=== PATIENT | male | born 1985 | race Hispanic/Latino ===

== ENCOUNTER 2017-05-15 20:42 | Emergency (ER) | payer MEDICAID ==
[2017-05-15 20:42] VITALS: BMI 23.4
[2017-05-15 20:56] VITALS: BP 154/84; PULSE 92; RESP 16; TEMP 98.1; O2SAT 96
--- NOTE | 2017-05-15 21:29 | ED PDOC ---
HPI: Psych/Substance Abuse Time Seen by Provider: 05/15/17 20:47 Chief Complaint (Nursing): Psychiatric Evaluation Chief Complaint (Provider): Psychiatric Evaluation History Per: Patient History/Exam Limitations: no limitations Onset/Duration Of Symptoms: Days Current Symptoms Are (Timing): Still Present Additional Complaint(s): Renan is a 31 y/o male brought to the ED for psychiatric evaluation. Patient reports hearing voices telling him to jump off a bridge. Ran out of psych meds 3 days ago but states he hears voices even while on meds. Psychiatric history of schizophrenia. No other medical history. PMD: Unknown Past Medical History Reviewed: Historical Data, Nursing Documentation, Vital Signs Vital Signs: Last Vital Signs Temp 98.1 F 05/15/17 20:53 Pulse 92 H 05/15/17 20:53 Resp 16 05/15/17 20:53 BP 154/84 H 05/15/17 20:53 Pulse Ox 96 05/15/17 20:53 - Medical History PMH: Anxiety, Back Problems, Bipolar Disorder, Depression, Paranoia, Schizophrenia Denies: Diabetes, Hepatitis, HIV, HTN, Chronic Kidney Disease, Seizures, Sexually Transmitted Disease - Surgical History Surgical History: - Family History Family History: States: Unknown Family Hx - Immunization History Hx Tetanus Toxoid Vaccination: No Hx Influenza Vaccination: No Hx Pneumococcal Vaccination: No - Home Medications Home Medications: Ambulatory Orders Medication Instructions Recorded Divalproex [Depakote DR(*BID*)] 500 mg PO DAILY #30 tcp 03/03/17 Haloperidol [Haldol] 5 mg PO BID #60 tab 03/03/17 Paliperidone [Invega Sustenna] 117 mg IM ONCE #1 syr 03/14/17 Benztropine [Cogentin] 1 mg PO BID #60 tab 03/18/17 Divalproex [Depakote DR] 500 mg PO TID #90 tcp 03/18/17 Haloperidol [Haldol] 5 mg PO DAILY #30 tab 03/18/17 Propranolol [Inderal] 20 mg PO TID #90 tab 03/18/17 traZODone [Desyrel] 100 mg PO HS #30 tab 03/18/17 - Allergies Allergies/Adverse Reactions: Allergies Allergy/AdvReac Type Severity Reaction Status Date / Time No Known Allergies Allergy Verified 05/15/17 20:53 Review of Systems ROS Statement: Except As Marked, All Systems Reviewed And Found Negative Psych: Positive for: Other (Hearing voices). Negative for: Suicidal ideation Physical Exam - Reviewed Nursing Documentation Reviewed: Yes Vital Signs Reviewed: Yes - Physical Exam Appears: Positive for: Non-toxic, No Acute Distress Head Exam: Positive for: ATRAUMATIC, NORMAL INSPECTION, NORMOCEPHALIC Skin: Positive for: Normal Color, Warm, Dry Eye Exam: Positive for: EOMI, Normal appearance, PERRL Neck: Positive for: Normal, Painless ROM, Supple Cardiovascular/Chest: Positive for: Regular Rate, Rhythm. Negative for: Murmur Respiratory: Positive for: Normal Breath Sounds. Negative for: Accessory Muscle Use, Respiratory Distress Gastrointestinal/Abdominal: Positive for: Normal Exam, Soft. Negative for: Tenderness Back: Positive for: Normal Inspection. Negative for: Vertebral Tenderness Extremity: Positive for: Normal ROM. Negative for: Pedal Edema, Deformity Neurologic/Psych: Positive for: Alert, Oriented. Negative for: Motor/Sensory Deficits - ECG O2 Sat by Pulse Oximetry: 96 (RA) Pulse Ox Interpretation: Normal - Progress Re-evaluation Time: 22:49 Condition: Re-examined (Evaluated by grain i farmworker who discussed with Dr. Carrillo. Both feel that pt is malingering and not suicidal and can be dc'ed) Medical Decision Making Medical Decision Making: Time: 21:30 Impression: Schizophrenia Initial Plan: --Pending psychiatric evaluation Scribe Attestation: Documented by Joycelyn Steen, acting as a scribe for Fer Lord MD Provider Scribe Attestation: All medical record entries made by the Scribe were at my direction and personally dictated by me. I have reviewed the chart and agree that the record accurately reflects my personal performance of the history, physical exam, medical decision making, and the department course for this patient. I have also personally directed, reviewed, and agree with the discharge instructions and disposition. Disposition - Clinical Impression Clinical Impression: Depression - Patient ED Disposition Is Patient to be Admitted: No Counseled Patient/Family Regarding: Diagnosis, Need For Followup - Disposition Referrals: [facility] [Outside] Disposition: Routine/Home Disposition Time: 22:50 Condition: FAIR Additional Instructions: FOLLOW UP ATE [facility] [address] [place] [address] Instructions: Depression (ED) Forms: [employer] (Cameroonian)
== END 2017-05-15 23:01 | disposition home or self-care (01) ==
LOC: H.ER 20:42
DX: F33.8 Other recurrent depressive disorders (principal); F20.9 Schizophrenia, unspecified; F31.9 Bipolar disorder, unspecified; F41.9 Anxiety disorder, unspecified

== ENCOUNTER 2017-05-18 05:26 | Inpatient (IN) | payer MEDICAID ==
[2017-05-18 05:32] VITALS: BMI 26.6
[2017-05-18 05:33] VITALS: O2SAT 96
--- NOTE | 2017-05-18 05:36 | ED PDOC ---
Psych Transfer Clearance - Clearance Statement Clearance Statement: Reviewed vital signs, lab results and transfer papers. Patient clinically stable for psychiatric admission.
[2017-05-18] MEDS ORDERED: DiphenhydrAMINE 50 mg/ml Inj IM PRN (05:57)
[2017-05-18] MEDS ORDERED: Alum-Mag Hydrox-Simethicone Susp (30 mL) PO PRN (05:57)
[2017-05-18] MEDS ORDERED: Magnesium Hydroxide Susp 30 ml UD PO PRN (05:57)
[2017-05-18 10:43] LABS: CHOLESTEROL 158 mg/dL (0-199)
[2017-05-18 11:58] VITALS: RESP 18
--- NOTE | 2017-05-18 12:06 | PCM.BM ---
Treatment Plan Problems - Problems identified on initial assessmt Problem 1 Date Initiated: 05/18/17 Time Initiated: 12:22 Assessment reference: NA Status: Active Priority: 1 Problem 2 Date Initiated: 05/18/17 Time Initiated: 12:23 Assessment reference: NA medication nonadherence Date Initiated: 05/18/17 Time Initiated: 13:37 Assessment reference: NA Status: Active Priority: 1 alterrred Sensory Perrceptual Auditory Date Initiated: 05/18/17 Time Initiated: 13:38 Assessment reference: NA Status: Active Priority: 2 Treatment assets and liabiliti Patient Assests: cooperative, resourceful, self-reliant, ADL independent Patient Liabilities: financial problems, poor support system, relationship conflicts, auditory impairment
--- NOTE | 2017-05-18 13:36 | PCM.BM ---
<Sona Munroe - Last Filed: 05/18/17 14:49> Treatment Plan Problems - Problems identified on initial assessmt Problem 1 Date Initiated: 05/18/17 Time Initiated: 12:22 Assessment reference: NA Status: Active Priority: 1 Problem 2 Date Initiated: 05/18/17 Time Initiated: 12:23 Assessment reference: NA medication nonadherence Date Initiated: 05/18/17 Time Initiated: 13:37 Assessment reference: NA Status: Active Priority: 1 alterrred Sensory Perrceptual Auditory Date Initiated: 05/18/17 Time Initiated: 13:38 Assessment reference: NA Status: Active Priority: 2 Treatment assets and liabiliti Patient Assests: cooperative, resourceful, self-reliant, ADL independent Patient Liabilities: financial problems, poor support system, relationship conflicts, auditory impairment - Milieu Protocol Maintain good personal hygiene: daily Encourage regular showers, daily Remind patient to perform daily oral care, daily Assist patient to perform ADL's Conduct patient checks and document Observation sheet: Q15 minutes Maintain personal safety: every shift Educate patient to report safety concerns to staff, every shift Monitor environment for contraband/sharps Medication safety: Monitor for expected outcome, potential side effects: every shift, Assess barriers to learning: every shift, Assess readiness for medication education: every shift <Marisela Baer - Last Filed: 05/19/17 10:24> Treatment assets and liabiliti Patient Assests: adapts well, cooperative, resourceful, self-reliant, ADL independent, physically healthy, negotiates basic needs Patient Liabilities: financial problems, poor support system, relationship conflicts Family Contact Family involvement: Famliy/SO not involved Family contact: Patient declines to allow family contact at present - Outside Agency Agency 1 Care involvment: Other (Patient agreeable to [facility] referral upon discharge. ) - Goals for Treatment Patient goals for treatment: Patient to continue stabilization on 3NP through medication management and group/supportive therapy. Patient to be encouraged to attend groups to develop coping skills, improve insight, manage AH and promote compliance. Psychoeducation regarding risks of noncompliance with appropriate aftercare provided. Discharge/Continuing Care - Education Needs Education Needs: Patient Medication, Patient Diagnosis/Disease Process, Patient Coping Skills, Patient Anger Management skills, Patient Community resources, Patient Aftercare Safety Plan - Discharge Discharge Criteria: Tolerates medication w/o severe side effects, Free of Suicidal thoughts, Free of paranoid thoughts, Free of agitation, Reduction of target symptoms Discharge to:: Longterm
--- NOTE | 2017-05-18 13:39 | PCM.BM ---
Treatment Plan Problems - Problems identified on initial assessmt Problem 1 Date Initiated: 05/18/17 Time Initiated: 12:22 Assessment reference: NA Status: Active Priority: 1 Problem 2 Date Initiated: 05/18/17 Time Initiated: 12:23 Assessment reference: NA medication nonadherence Date Initiated: 05/18/17 Time Initiated: 13:37 Assessment reference: NA Status: Active Priority: 1 alterrred Sensory Perrceptual Auditory Date Initiated: 05/18/17 Time Initiated: 13:38 Assessment reference: NA Status: Active Priority: 2 Treatment assets and liabiliti Patient Assests: cooperative, resourceful, self-reliant, ADL independent Patient Liabilities: financial problems, poor support system, relationship conflicts, auditory impairment - Milieu Protocol Maintain good personal hygiene: daily Encourage regular showers, daily Remind patient to perform daily oral care, daily Assist patient to perform ADL's Maintain personal safety: every shift Educate patient to report safety concerns to staff, every shift Monitor environment for contraband/sharps Medication safety: Monitor for expected outcome, potential side effects: every shift, Assess barriers to learning: every shift, Assess readiness for medication education: every shift
--- NOTE | 2017-05-18 16:13 | CP.PCM.CON ---
History of Present Illness - History of Present Illness History of Present Illness: 31 yo male with no siginficant PMH admitted to psyche unit because of suicidal ideation. Review of Systems - Review of Systems All systems: reviewed and no additional remarkable complaints except (aside from those mentioned ABOVE, 12 POINT SYSTEM REVIEW WERE NEGATIVE BY ME) Past Patient History - Infectious Disease Hx of Infectious Diseases: None - Tetanus Immunizations Tetanus Immunization: Unknown - Past Medical History & Family History Past Medical History?: No - Past Social History Smoking Status: Heavy Smoker > 10 Cigarettes Daily Alcohol: None Drugs: Denies Home Situation {Lives}: Homeless - CARDIAC Hx Cardiac Disorders: No - PULMONARY Hx Respiratory Disorders: No - NEUROLOGICAL Hx Neurological Disorder: No - HEENT Hx HEENT Problems: No Hx Cataracts: No Hx Deafness: No Hx Difficulty Chewing: No Hx Epistaxis: No Hx Glaucoma: No Hx Macular Degeneration: No - RENAL Hx Chronic Kidney Disease: No - ENDOCRINE/METABOLIC Hx Endocrine Disorders: No - HEMATOLOGICAL/ONCOLOGICAL Hx Blood Disorders: No - INTEGUMENTARY Hx Dermatological Problems: No Hx Basil Cell: No Hx Eczema: No Hx Melanoma: No Hx Psoriasis: No Hx Squamous Cell: No - MUSCULOSKELETAL/RHEUMATOLOGICAL Hx Musculoskeletal Disorders: No - GASTROINTESTINAL Hx Gastrointestinal Disorders: No - GENITOURINARY/GYNECOLOGICAL Hx Genitourinary Disorders: No Hx Sexually Transmitted Disorders: No - PSYCHIATRIC Hx Depression: Yes Hx Substance Use: Yes (THC) - SURGICAL HISTORY Hx Surgeries: No - ANESTHESIA Hx Anesthesia: No Meds Allergies/Adverse Reactions: Allergies Allergy/AdvReac Type Severity Reaction Status Date / Time No Known Allergies Allergy Verified 05/15/17 20:53 - Medications Medications: Current Medications Acetaminophen (Tylenol 325mg Tab) 650 mg PO Q4 PRN PRN Reason: Pain, moderate (4-7) Al Hydrox/Mg Hydrox/Simethicone (Maalox Plus 30 Ml) 30 ml PO Q4 PRN PRN Reason: Dyspepsia Diphenhydramine HCl (Benadryl) 50 mg IM Q6 PRN PRN Reason: Extrapyramidal S/S Unable PO Diphenhydramine HCl (Benadryl) 50 mg PO HS PRN PRN Reason: Sleep Last Admin: 05/18/17 10:34 Dose: 50 mg Haloperidol (Haldol) 5 mg PO Q4 PRN PRN Reason: Agitation Last Admin: 05/18/17 10:34 Dose: 5 mg Haloperidol Lactate (Haldol) 5 mg IM Q4 PRN PRN Reason: Agitation, Unable to Take PO Lorazepam (Ativan) 2 mg IM Q4 PRN PRN Reason: Anxiety/Agitation,Unable PO Lorazepam (Ativan) 1 mg PO Q4 PRN PRN Reason: Anxiety/Agitation Last Admin: 05/18/17 10:34 Dose: 1 mg Magnesium Hydroxide (Milk Of Magnesia) 30 ml PO HS PRN PRN Reason: Constipation Physical Exam - Constitutional Appears: No Acute Distress - Head Exam Head Exam: ATRAUMATIC - Eye Exam Eye Exam: absent: Scleral icterus - ENT Exam ENT Exam: Mucous Membranes Moist - Neck Exam Neck exam: Negative for: Meningismus - Respiratory Exam Respiratory Exam: absent: Rhonchi, Wheezes, Respiratory Distress - Cardiovascular Exam Cardiovascular Exam: REGULAR RHYTHM, +S1, +S2 - GI/Abdominal Exam GI & Abdominal Exam: Soft. absent: Tenderness - Rectal Exam Rectal Exam: Deferred - Extremities Exam Extremities exam: Negative for: pedal edema - Neurological Exam Neurological exam: Alert, Oriented x3 - Psychiatric Exam Psychiatric exam: Normal Affect - Skin Skin Exam: Dry, Intact Results - Vital Signs Recent Vital Signs: Last Vital Signs Temp 97 F L 05/18/17 09:00 Pulse 75 05/18/17 09:00 Resp 18 05/18/17 09:00 BP 126/75 05/18/17 09:00 Pulse Ox 96 05/18/17 05:30 - Labs Labs: Laboratory Results - last 24 hr 05/18/17 09:45 Triglycerides 277 H D Cholesterol 158 LDL Cholesterol Direct 106 HDL Cholesterol 31 Assessment & Plan (1) Depression Status: Acute Comment: psyche is managing
[2017-05-19 08:00] LABS: T4 8.93 ug/dl (5.5-11.0)
[2017-05-19 08:12] LABS: THYROID STIMULATING HORMONE 0.41 mIU/ML (0.46-4.68)
--- NOTE | 2017-05-19 11:16 | PCM.PSYCH ---
Initial Psychiatric Evaluation - Initial Psychiatric Evaluation Type of Admission: Voluntary Legal Status: Capacity Chief Complaint (in patient's own words): can i go tomorrow Patient's Reaction to Hospitalization: can i go tomorrow History of Present Illness and Precipitating Events: 31 yo multiple admissions for schizoaffective disorder. he is homeless. he presents frequently to ERs across the region c/o voices, suicidal thoughts. he does not follow up with treatment on any consistent basis. he generally responds well to depakote and haldol. he was seeking admission because of voices. he now wants to leave the hospital. Current Medications: Active Medications Generic Name Dose Route Start Last Admin Trade Name Freq PRN Reason Stop Dose Admin Acetaminophen 650 mg 05/18/17 05:57 Tylenol 325mg Tab PO Q4 PRN Pain, moderate (4-7) Al Hydrox/Mg Hydrox/Simethicone 30 ml 05/18/17 05:57 Maalox Plus 30 Ml PO Q4 PRN Dyspepsia Benztropine Mesylate 1 mg 05/19/17 10:15 Cogentin PO BID ANDIE Diphenhydramine HCl 50 mg 05/18/17 05:57 Benadryl IM Q6 PRN Extrapyramidal S/S Unable PO Diphenhydramine HCl 50 mg 05/18/17 06:00 05/18/17 10:34 Benadryl PO 50 mg HS PRN Administration Sleep Divalproex Sodium 500 mg 05/19/17 10:[address](*Bid*) PO BID ANDIE Haloperidol 5 mg 05/18/17 05:57 05/18/17 10:34 Haldol PO 5 mg Q4 PRN Administration Agitation Haloperidol 5 mg 05/19/17 10:15 Haldol PO BID ANDIE Haloperidol Lactate 5 mg 05/18/17 05:57 Haldol IM Q4 PRN Agitation, Unable to Take PO Lorazepam 2 mg 05/18/17 05:57 Ativan IM Q4 PRN Anxiety/Agitation,Unable PO Lorazepam 1 mg 05/18/17 05:57 05/18/17 10:34 Ativan PO 1 mg Q4 PRN Administration Anxiety/Agitation Magnesium Hydroxide 30 ml 05/18/17 05:57 Milk Of Magnesia PO HS PRN Constipation Trazodone HCl 100 mg 05/19/17 22:00 Desyrel PO HS ANDIE Past Psychiatric History - Past Psychiatric History Previous Treatment History: Inpatient Prior Professional Help: multiple admissions History of Abuse: does not discuss History of ETOH/Drug Use: history of cannabis abuse. no drug testing results available History of Family Illness: does not discuss Pertinent Medical Hx (Current Medical&Sleep Prob, Allergies): Allergies Allergy/AdvReac Type Severity Reaction Status Date / Time No Known Allergies Allergy Verified 05/15/17 20:53 RX: Divalproex [Depakote DR(*BID*)] 500 mg PO DAILY #30 tcp 03/03/17 RX: Haloperidol [Haldol] 5 mg PO BID #60 tab 03/03/17 RX: Paliperidone [Invega Sustenna] 117 mg IM ONCE #1 syr 03/14/17 RX: Benztropine [Cogentin] 1 mg PO BID #60 tab 03/18/17 RX: Divalproex [Depakote DR] 500 mg PO TID #90 tcp 03/18/17 RX: Haloperidol [Haldol] 5 mg PO DAILY #30 tab 03/18/17 RX: Propranolol [Inderal] 20 mg PO TID #90 tab 03/18/17 RX: traZODone [Desyrel] 100 mg PO HS #30 tab 03/18/17 Review of Systems - Psychiatric Psychiatric: As Per HPI Mental Status Examination - Personal Presentation Personal Presentation: Looks stated age Additional comments: obese, poor dentition - Affect Affect: Constricted - Motor Activity Motor Activity: Calm - Reliability in Providing Information Reliability in Providing Information: Poor, due to alteration in thoughts - Speech Speech: Other (focused on discharge) - Mood Mood: Depressed - Formal Thought Process Formal Thought Process: Hallucinations, Loosening of associations - Hallucinations/Delusions Hallucinations: Auditory - Obsessions/Compulsions Obsessions: No Compulsions: No - Cognitive Functions Orientation: Person, Place, Situation, Time Sensorium: Alert Attention/Concentration: Attentive Abstract Thinking: Rogers Estimate of Intelligence: Average Judgement: Intact, as evidence by: Insight regarding need for hospitalization Memory: Recent intact, as evidence by: Ability to recall events of the day, Remote intact, as evidenced by: Abilit to recall sig. life events - Risk Risk: Suicidal (denies current thoughts), Diminished functioning - Strength & Assets Inventory Strength & Assets Inventory: Life experience DSM 5 DX - DSM 5 DSM 5 Diagnosis: schizoaffective disorder, bipolar type - Recommended/Plan of Treatment Treatment Recommendations and Plan of Treatment: admit to 3np for safety and observation gather collateral information provide supportive therapy adjust medications hospitalist consult disposition planning Projected ELOS: 5-7 days Prognosis: fair - Smoking Cessation Smoking Cessation Initiated: No
[2017-05-19] MEDS: Divalproex 500 mg DR(BID formulation) PO SCH ×2 (12:14→17:22)
[2017-05-20 09:16] VITALS: BP 127/57; PULSE 75; TEMP 96.3
[2017-05-20] MEDS: Divalproex 500 mg DR(BID formulation) PO SCH (09:30)
--- NOTE | 2017-05-20 11:31 | PCM.PYCHDC ---
Mental Status Examination - Mental Status Examination Orientation: Person, Place, Situation, Time Memory: Intact Mood: Neutral Affect: Broad Speech: Appropriate Attention: WNL Concentration: WNL Association: WNL Fund of Knowledge: WNL Formal Thought Process: No Impairment Description of patient's judgement and insight: Fair I/J Psychotic Thoughts and Behaviors: No AH/VH/paranoia/delusions Suicidal Ideation: No Current Homicidal Ideation?: No Discharge Summary - Discharge Note Reason for Hospitalization: As per initial note, HPI: 31 yo multiple admissions for schizoaffective disorder. he is homeless. he presents frequently to ERs across the region c/o voices, suicidal thoughts. he does not follow up with treatment on any consistent basis. he generally responds well to depakote and haldol. he was seeking admission because of voices. he now wants to leave the hospital. Laboratory Data: Abnormal Lab Results 05/19/17 05/19/17 07:15 07:15 Hemoglobin A1c 5.5 RPR Nonreactive Consultations:: List each consultation separately and include: 1. Reason for request. 2. Findings. 3. Follow-up Consultations: Medicine consult Summary of Hospital Course include:: 1. Description of specific treatment plan utilized for patients during their course of treatmen. 2. Summarize the time- course for resolution of acute symptoms and/or regressed behaviors. 3. Describe issues identified and worked on during hospitalization. 4. Describe medication utilized. 5. Describe medical problems identified and treated. 6. Reassessment of suicide risk Summary of Hospital Course: Patient admitted to the psychiatry unit. Individual and group therapy provided. Patient was restarted on medications: Cogentin 1 mg PO BID, Depakote 500 mg PO BID, Haldol 5 mg PO BID, Trazodone 100 mg PO HS. Patient is requesting to be discharge and as he is not an acute danger to self or others, he will be discharged w/ outpatient follow-up. - Final Diagnosis (DSM 5) Condition upon Discharge: STABLE DSM 5: Schizoaffective Disorder Disposition: HOME/ ROUTINE Follow-up Treatment Plan: -Discharge w/ outpatient follow-up Prescriptions/Medication Reconciliation: Benztropine [Cogentin] 1 mg PO BID #60 tab Divalproex [Depakote DR(*BID*)] 500 mg PO BID #60 tcp Haloperidol [Haldol] 5 mg PO BID #60 tab traZODone [Desyrel] 100 mg PO HS #30 tab - Smoking Cessation Smoking Cessation Medication prescribed: No Reason for not providing: Not indicated - Antipsychotic Medications Pt discharged on 2 or more routine antipsychotic medications: No
== END 2017-05-20 11:16 | disposition home or self-care (01) | DRG 430 ==
LOC: H.ER 05:26 → H.ERHOLD 05:33 → H.PSYCH 05:50
PROVIDERS: ADMIT Psychiatry & Neurology Psychiatry; ATTEND Psychiatry & Neurology Psychiatry
PROC: GZHZZZZ Group Psychotherapy (ICD-10-PCS; principal; 2017-05-18)
PROC: GZ56ZZZ Individual Psychotherapy, Supportive (ICD-10-PCS; 2017-05-18)
DX: F25.9 Schizoaffective disorder, unspecified (principal); Z59.0 Homelessness; R45.851 Suicidal ideations; F17.200 Nicotine dependence, unspecified, uncomplicated

== ENCOUNTER 2018-03-26 20:32 | Emergency (ER) | payer MEDICAID ==
[2018-03-26 20:33] VITALS: BMI 21.4
[2018-03-26 20:49] VITALS: PULSE 77; RESP 18; TEMP 98.2; O2SAT 100
--- NOTE | 2018-03-26 21:05 | ED PDOC ---
HPI: General Adult Time Seen by Provider: 03/26/18 21:05 Chief Complaint (Nursing): Medical Clearance Chief Complaint (Provider): clearance History Per: Patient Additional Complaint(s): 32-year-old male presents to emergency department for medical and psychiatric clearance. Patient is currently under arrest. He complains of auditory hallucinations which are chronic. He offers no other complaints. Police officers are at bedside with patient. PMD: none Past Medical History Reviewed: Historical Data, Nursing Documentation, Vital Signs Vital Signs: Last Vital Signs Temp 98.2 F 03/26/18 20:47 Pulse 77 03/26/18 20:47 Resp 18 03/26/18 20:47 BP 119/79 03/26/18 20:47 Pulse Ox 100 03/26/18 21:05 - Medical History PMH: Anxiety, Back Problems, Bipolar Disorder, Depression, Paranoia, Schizophrenia - Surgical History Surgical History: - Family History Family History: States: No Known Family Hx - Living Arrangements Living Arrangements: Other (non-domiciled) - Social History Current smoker - smoking cessation education provided: Yes Alcohol: None Drugs: Denies - Home Medications Home Medications: Ambulatory Orders Medication Instructions Recorded Haloperidol [Haldol] 10 mg PO DAILY #30 tab 01/17/18 Benztropine [Cogentin] 1 mg PO BID #60 tab 02/21/18 Divalproex [Depakote DR] 500 mg PO BID #60 tcp 02/21/18 - Allergies Allergies/Adverse Reactions: Allergies Allergy/AdvReac Type Severity Reaction Status Date / Time No Known Allergies Allergy Verified 01/18/18 19:33 Review of Systems ROS Statement: Except As Marked, All Systems Reviewed And Found Negative Psych: Positive for: Other (here for medical and psychiatric clearance) Physical Exam - Reviewed Nursing Documentation Reviewed: Yes Vital Signs Reviewed: Yes - Physical Exam Appears: Positive for: Non-toxic, No Acute Distress. Negative for: Well ( unkempt) Skin: Positive for: Normal Color. Negative for: Rash Eye Exam: Positive for: Normal appearance Cardiovascular/Chest: Positive for: Regular Rate, Rhythm Respiratory: Positive for: Normal Breath Sounds Extremity: Positive for: Normal ROM Neurologic/Psych: Positive for: Alert, Oriented, Gait (steady) - ECG O2 Sat by Pulse Oximetry: 100 Pulse Ox Interpretation: Normal Medical Decision Making Medical Decision Makin32 year old here for medical and psychiatric clearance. Plan: Crisis eval As per crisis counselor and psychiatrist in call, Dr. Woods, patient is stable for discharge. Patient is medically and psychiatrically stable for incarceration Disposition - Clinical Impression Clinical Impression: Adjustment disorder - Patient ED Disposition Is Patient to be Admitted: No - Disposition Referrals: [facility] [Outside] Disposition: Routine/Home Disposition Time: 21:26 Condition: STABLE Additional Instructions: Patient is medically and psychiatrically stable for incarceration. Instructions: Adjustment Disorder Forms: [employer] (Bhutanese)
[2018-03-26 22:30] VITALS: BP 112/79
== END 2018-03-26 21:35 ==
LOC: H.ER 20:32
DX: F43.22 Adjustment disorder with anxiety (principal); F17.200 Nicotine dependence, unspecified, uncomplicated; F20.9 Schizophrenia, unspecified; F31.9 Bipolar disorder, unspecified